=== PATIENT | male | born 1995 | race Caucasian/White ===

== ENCOUNTER 2018-12-27 11:54 | Outpatient (REF) | payer BC, SELFPAY ==
[2018-12-27 19:25] LABS: Calculated LDL 92 mg/dL; Cholesterol 143 mg/dL (50-200); HDL Cholesterol 37 mg/dL (40-60); Triglyceride 71 mg/dL (30-150)
== END 2018-12-27 12:14 ==
LOC: NCHCN 11:54
PROVIDERS: Visit Provider Nurse Practitioner Family
DX: Z00.00 Encounter for general adult medical examination without abnormal findings (principal)
CPT/HCPCS: 80061; 83721

== ENCOUNTER 2023-07-05 15:14 | Outpatient (REF) | payer BC, SELFPAY ==
[2023-07-05 19:31] LABS: Abs Immature Grans 0.01 10^3/uL (0.0-0.06); Absolute Basophil Count 0.09 10^3/uL (0.0-0.2); Absolute Eosinophil Count 0.24 10^3/uL (0.0-0.7); Absolute Lymphocyte Count 1.91 10^3/uL (1.2-3.4); Absolute Monocyte Count 0.52 10^3/uL (0.1-0.8); Absolute Neutrophil Count 3.05 10^3/uL (1.2-6.7); Basophils % 1.5; Eosinophils % 4.1; HCT 45.8 % (40.0-50.0); HGB 16.1 g/dL (13.5-17.5); Immature Grans % 0.2; Lymphocytes % 32.8; MCH 30.6 pg (27.0-33.0); MCHC 35.2 % (32.0-36.0); MCV 87 fL (80-95); Monocytes % 8.9; Neutrophils % 52.5; Platelet Count 352 10^3/uL (130-400); RBC 5.27 10^6/uL (4.36-5.78); RDW 11.4 % (11.8-14.1); RDW-SD 36.8 fL; WBC 5.82 10^3/uL (4.4-10.8)
[2023-07-05 19:37] LABS: Iron 144 ug/dL (65-175); Total Iron Binding Capacity 356 ug/dL (250-450); Transferrin Sat 40 % (20-55)
[2023-07-05 19:53] LABS: ALT 65 U/L (16-63); AST 27 U/L (15-37); Albumin 4.2 g/dL (3.4-5.0); Alkaline Phosphatase 69 U/L (46-116); Anion Gap 9.8 mmol/L (3-11); BUN 13 mg/dL (7-18); Bilirubin, Total 0.6 mg/dL (0.2-1.0); CO2 24.2 mmol/L (21.0-32.0); Calcium 8.9 mg/dL (8.5-10.1); Calculated LDL 106 mg/dL (<100); Chloride 105 mmol/L (98-107); Cholesterol 167 mg/dL (<200); Estimated GFR 103.84 (mL/min/1.73m2); FREE T4 1.02 ng/dL (0.76-1.46); Ferritin 361 ng/mL (26-388); Glucose 101 mg/dL (74-106); HDL Cholesterol 38 mg/dL (40-60); Potassium 4.2 mmol/L (3.5-5.1); Sodium 139 mmol/L (136-145); TSH 0.86 uIU/mL (0.36-3.74); Total Protein 7.7 g/dL (6.4-8.2); Triglyceride 117 mg/dL (<150)
[2023-07-11 08:56] LABS: Specimen WB Whole Blood
== END 2023-07-05 15:15 | disposition home or self-care (01) ==
LOC: NCHCN 15:14
PROVIDERS: PCP Physician Assistant; Visit Provider Physician Assistant
DX: E78.5 Hyperlipidemia, unspecified (principal); E66.9 Obesity, unspecified; Z83.3 Family history of diabetes mellitus; Z83.49 Family history of other endocrine, nutritional and metabolic diseases
CPT/HCPCS: 80053; 80061; 81256; 82728; 83036; 83540; 83550; 84439; 84443; 85025

== ENCOUNTER 2024-10-09 20:57 | Outpatient (REF) | payer BC, SELFPAY ==
[2024-10-09 19:20] LABS: Abs Immature Grans 0.04 10^3/uL (0.0-0.06); Absolute Basophil Count 0.13 10^3/uL (0.0-0.2); Absolute Eosinophil Count 0.29 10^3/uL (0.0-0.7); Basophils % 1.1 %; Eosinophils % 2.4 %; HGB 16.2 g/dL (13.5-17.5); Immature Grans % 0.3 %; MCHC 35.2 % (32.0-36.0); MCV 88 fL (80-95); MPV 9.7 fL (8.0-11.0); Monocytes % 7.8 %; Neutrophils % 63.4 %; Platelet Count 421 10^3/uL (130-400); RBC 5.22 10^6/uL (4.36-5.78); RDW 11.4 % (11.8-14.1); RDW-SD 36.6 fL; WBC 11.99 10^3/uL (4.4-10.8)
[2024-10-09 19:29] LABS: Absolute Monocyte Count 0.94 10^3/uL (0.1-0.8)
[2024-10-09 19:48] LABS: ALT 54 U/L (16-63); AST 30 U/L (15-37); Albumin 4.4 g/dL (3.4-5.0); Alkaline Phosphatase 109 U/L (46-116); Anion Gap 10.2 mmol/L (3-11); BUN 21 mg/dL (7-18); Bilirubin, Total 0.4 mg/dL (0.2-1.0); CO2 25.8 mmol/L (21.0-32.0); CREATININE 1.2 mg/dL (0.70-1.30); Calcium 9.2 mg/dL (8.5-10.1); Chloride 104 mmol/L (98-107); Estimated GFR 82.92 (mL/min/1.73m2); Glucose 95 mg/dL (74-106); Sodium 140 mmol/L (136-145); Total Protein 7.9 g/dL (6.4-8.2)
[2024-10-13 10:44] LABS: Hepatitis C Ab w Rflx HCV PCR Negative (Negative)
[2024-10-13 12:02] LABS: HIV-1/2 Ag & Ab Screen Negative (Negative)
== END 2024-10-09 20:58 | disposition home or self-care (01) ==
LOC: NCHCN 20:57
PROVIDERS: PCP Physician Assistant; Visit Provider Physician Assistant
DX: E78.5 Hyperlipidemia, unspecified (principal); Z11.4 Encounter for screening for human immunodeficiency virus [HIV]; Z11.59 Encounter for screening for other viral diseases; K76.0 Fatty (change of) liver, not elsewhere classified
CPT/HCPCS: 80053; 86803; 87389; 85025